=== PATIENT | female | born 1990 ===

== ENCOUNTER 2016-07-17 18:19 | Emergency (ER) | payer OTHER ==
[2016-07-17 20:03] VITALS: BP 126/69
--- NOTE | 2016-07-17 20:57 | RAD ---
Indication: Sacral region pain for 2 days without preceding injury. Decreased range of motion. Comparison: None. Technique: AP pelvis. Report: Unremarkable sacroiliac joints and pubic symphysis. Unremarkable hip joints in the AP projection. No fracture or focal osseous lesion evident. Unremarkable soft tissue contours. IMPRESSION: Negative exam.
--- NOTE | 2016-07-17 20:59 | RAD ---
Indication: Lower lumbar and sacral region pain for 2 days without preceding injury. Decreased range of motion. Comparison: Pelvic radiograph of the same date. Technique: AP, lateral, and oblique views lumbar sacral spine. Report: Alignment is anatomic. No cortical disruption or trabecular impaction to indicate a vertebral body fracture. Oblique views without evidence for spondylolysis. The L5-S1 disc space is moderately narrow which may be congenital or reflect degenerative spondylosis. Unremarkable soft tissue contours. IUD noted on the pelvic radiograph. IMPRESSION: 1. Negative for fracture or malalignment. 2. The L5-S1 disc space is moderately narrow which may be congenital or reflect degenerative spondylosis.
--- NOTE | 2016-07-17 21:15 | UC ---
Brendan Bran Claudia, scribed for Bandar Forrester MD on 07/17/16 at 2023 . Back Pain HPI - HPI Summary HPI Summary: 26 year old female presents to the [facility] with lower back pain.Pt states the pain is constant and is located bilateral paraspinal over the L5 region. Pt denies any bladder/bowel incontinence, dysuria, numbness/tingling to the LE, weakness to the LE. Pt notes she has been taking ibuprofen for the pain but it has not been helpful in alleviating the pain. Pt states that she is not having difficulty walking but the pain is aggravated from a 5/10 when ambulating or moving around. Pt . denies any PMHx of back injuries - History of Current Complaint Chief Complaint: UCBackPain Stated Complaint: LOWER BACK PAIN Time Seen by Provider: 07/17/16 20:10 Hx Obtained From: Patient Hx Last Menstrual Period: July 10; has an IUD Onset/Duration: Sudden Onset - SINCE YESTERDAY AM, Still Present Timing: Constant Back Pain: Is Discrete @ - L5 BILATERALLY PARASPINAL Aggravating: Movement, Lifting, Bending, Walking Associated Signs And Symptoms: Positive: Fever. Negative: Weakness, Numbness, Tingling, Bladder Incontinence, Bowel Incontinence - Allergies/Home Medications Allergies/Adverse Reactions: Allergies Allergy/AdvReac Type Severity Reaction Status Date / Time Penicillins [PCN] Allergy Rash Verified 07/17/16 20:03 Home Medications: Home Medications Escitalopram Oxalate [Lexapro] 20 mg 07/17/16 [History] Lamotrigine [Lamictal] 150 mg PO 07/17/16 [History] PMH/Surg Hx/FS Hx/Imm Hx Previously Healthy: Yes Endocrine History Of: Denies: Diabetes, Thyroid Disease Cardiovascular History Of: Denies: Cardiac Disorders, Hypertension Respiratory History Of: Denies: COPD, Asthma GI/ History Of: Denies: Ulcer - Surgical History Surgical History: None - Social History Occupation: Student Lives: Alone Alcohol Use: a few nights a week Substance Use Type: None Smoking Status (MU): Never Smoked Tobacco Review of Systems Constitutional: Negative - NO FEVER CHILLS Skin: Negative Eyes: Negative ENT: Negative Respiratory: Negative Cardiovascular: Negative Gastrointestinal: Negative Genitourinary: Negative - NO INCONTINENCE, DYSURIA Motor: Negative - NO LEG WEAKNESS Neurovascular: Negative - NO NUMBNESS/TINGLING OF THE LE Musculoskeletal: Negative Neurological: Negative Psychological: Negative All Other Systems Reviewed And Are Negative: Yes Physical Exam Triage Information Reviewed: Yes Appearance: Well-Appearing, No Pain Distress, Well-Nourished Vital Signs: Initial Vital Signs Temp 98.6 F 07/17/16 19:56 Pulse 89 07/17/16 19:56 Resp 16 07/17/16 19:56 BP 126/69 07/17/16 19:56 Pulse Ox 98 07/17/16 19:56 Vital Signs Reviewed: Yes ENT: Positive: Normal ENT inspection Neck: Positive: Supple Respiratory: Positive: Lungs clear, Normal breath sounds, No respiratory distress, No accessory muscle use Cardiovascular: Positive: RRR, No Murmur Abdomen Description: Positive: Nontender Musculoskeletal: Positive: Other: - no midline back tenderness. Neurological Exam: Normal Neurological: Positive: Alert, Other: - gait normal, strength 5/5 throughout, sensory grossly intact. Psychological Exam: Normal Skin: Negative: rashes Diagnostics - Radiology LSPINE XRAY Xray Interpretation: No Acute Changes - 1. Negative for fracture or malalignment. 2. The L5-S1 disc space is moderately narrow which may be congenital or reflect degenerative spondylosis. Radiology Interpretation Completed By: Radiologist PELVIS XRAY Xray Interpretation: No Acute Changes - NEGATIVE EXAM Re-Evaluation - Re-Evaluation 1 Re-Evaluation Time: 21:05 Comment: XRAY RESULTS ARE UPDATED WITH THE PT. Back Pain Course/Dx - Course Course Of Treatment: 26 yr old female with back pain correlating to xray finding of degenerative spondylosis at L5/S1. referring her back to [facility] for follow up. script for 10 norco given - Differential Dx/Diagnosis Provider Diagnoses: low back pain Discharge - Discharge Plan Condition: Good Disposition: HOME Prescriptions: HYDROcodone/ACETAMIN 5-325 MG* [[place] 5-325 TAB*] 1 tab PO Q6H PRN #10 tab MDD 4 PRN Reason: Pain Patient Education Materials: Back Pain (ED) Referrals: [facility] [Primary Care Provider] - The documentation as recorded by the Brendan underwood Claudia accurately reflects the service I personally performed and the decisions made by , Bandar Forrester MD.
== END 2016-07-17 21:41 | disposition home or self-care (01) ==
LOC: UCEAST 18:19
DX: M54.5 Low back pain (principal); Z88.0 Allergy status to penicillin
CPT/HCPCS: 72110; 72170; 99212; G0463